=== PATIENT | male | born 1990 | race Two or more races ===

== ENCOUNTER 2021-02-23 17:19 | Emergency (ER) | payer OTHER ==
[~2021-02-23] VITALS: Ht 165.1 cm; Wt 63.3 kg
[2021-02-23] MEDS ORDERED: LEVOFLOXACIN750 MG PO (22:35)
[2021-02-23] MEDS ORDERED: NAPROSYN500 MG PO (22:36)
== END 2021-02-23 23:00 | disposition home or self-care (01) ==
LOC: FSED 17:22
DX: N50.812 Left testicular pain (principal); N45.1 Epididymitis
CPT/HCPCS: 76870; 81003; 99283